=== PATIENT | female | born 1940 | race Caucasian/White ===

== ENCOUNTER 2016-07-11 07:43 | Day surgery (SDC) | payer MEDICARE, OTHER ==
[2016-07-11] MEDS ORDERED: IV START KIT ONE (08:03)
[2016-07-11] MEDS ORDERED: LACTATED RINGERS 1,000 ML ONE (08:03)
[2016-07-11] MEDS ORDERED: PROPOFOL 40 ML IV ONE (09:11)
[2016-07-11] MEDS ORDERED: FENTANYL 100 MCG/2 ML VIAL ONE (09:11)
[2016-07-11] MEDS ORDERED: LACTATED RINGERS 1,000 ML IV SCH (10:00)
--- NOTE | 2016-07-13 08:48 | SURGPATH ---
[facility] [address] [place] [id number] Patient Name: ELIAS GRIFFITH MR#: [id number] : 1940 Gender: F Specimen #: [id number] Collected: 07/11/2016 Received: 07/12/2016 Reported: 07/13/2016 Submitting Phys: BERTA ARZATE Copy To Phys: AIYANA HAWKINS [facility] Clinical History / Pre-Operative Diagnosis: SCREENING Specimen Source / Surgical Procedure Performed: CECUM POLYP Interpretation: CECUM, POLYP, BIOPSY: - TUBULAR ADENOMA Electronically Signed Out Mera Bridges M.D. Gross Description: The specimen is received in a formalin filled container labeled with the patient's name and "cecum". A polypoid martinez biopsy is 0.3 cm. Totally embedded in one cassette. Tushar Weber Microscopic Description: Sections show fragments of adenomatous colonic mucosa without high grade dysplasia. 1: 52921 D12.0
== END 2016-07-11 10:27 | disposition home or self-care (01) ==
LOC: SDC 07:43
PROVIDERS: ATTEND Surgery
PROC: 0DBH8ZX Excision of Cecum, Via Natural or Artificial Opening Endoscopic, Diagnostic (ICD-10-PCS; principal; 2016-07-11)
DX: Z12.11 Encounter for screening for malignant neoplasm of colon (principal); Z80.0 Family history of malignant neoplasm of digestive organs; D12.0 Benign neoplasm of cecum; K57.30 Diverticulosis of large intestine without perforation or abscess without bleeding; I10 Essential (primary) hypertension; I73.00 Raynaud's syndrome without gangrene; Z79.82 Long term (current) use of aspirin; Z87.891 Personal history of nicotine dependence
CPT/HCPCS: 45380; J3010; J7120